=== PATIENT | female | born 1950 | race Caucasian/White ===

== ENCOUNTER → 2017-06-06 | Outpatient (CLI) | payer MEDICARE ==
[~2017-06-06] MED LIST: ATORVASTATIN CA20 MG PO; CELEXA PO; CITALOPRAM HBR10 MG PO; CITALOPRAM HBR20 MG PO; CLONAZEPAM0.5 MG PO; FERROUS SULFAT325 M1 PO; FLAGYL500 MG PO; VITAMIN C500 M1 PO
--- NOTE | 2017-06-13 18:11 | Diagnostic Imaging Report ---
#[id number] - MGSCRBIL #BILATERAL DIGITAL SCREENING MAMMOGRAM WITH CAD: 06/06/2017 CLINICAL: Routine screening. Comparison is made to exams dated: 01/25/2016 mammogram, 08/30/2014 mammogram and 06/18/2013 mammogram - [facility]. Current study contains 5 films. The tissue of both breasts is extremely dense, which lowers the sensitivity of mammography. Current study was also evaluated with a Computer Aided Detection (CAD) system. There are benign calcifications in both breasts that are scattered and stable. No significant masses, calcifications, or other findings are seen in either breast. There has been no significant interval change. IMPRESSION: BENIGN There is no mammographic evidence of malignancy. A 1 year screening mammogram is recommended. The patient will be notified by letter of the results. Bronson Qiuntero Jr., D.O. cw/:06/12/2017 14:27:20 [employer]: Telma WALTER(Sheela)(M), [facility] letter sent: Compared to Prior B9 Mammogram BI-RADS: 2 Benign
== END ==
LOC: MAMMO 10:41
PROVIDERS: ATTEND Internal Medicine
DX: Z12.31 Encounter for screening mammogram for malignant neoplasm of breast (principal)
CPT/HCPCS: 77067